=== PATIENT | female | born 2000 | race Caucasian/White ===

== ENCOUNTER 2018-04-15 00:38 | Emergency (ER) | payer MEDICAID ==
[2018-04-15 00:59] VITALS: RESP 18
--- NOTE | 2018-04-15 01:30 | ED PDOC ---
Lower Extremity Pain/Injury Time Seen by Provider: 04/15/18 01:00 Chief Complaint (Nursing): Lower Extremity Problem/Injury Chief Complaint (Provider): right foot pain History Per: Patient History/Exam Limitations: no limitations Onset/Duration Of Symptoms: Days (3 weeks) Additional Complaint(s): 18 y/o female presents for evaluation of right foot pain x 3 weeks. Patient states she fell 3 weeks ago and twisted right foot. Patient states she went to [facility] and had a foot xray was normal, and followed up with a diesel automotive technician and had another xray which was normal and was set up to have an MRI to rule out a ligament injury. Patient states MRI still pending but pain is not getting better. Denies numbness/weakness right lower extremity, limitation of movement. Past Medical History Reviewed: Historical Data, Nursing Documentation, Vital Signs Vital Signs: Last Vital Signs Temp 97.8 F 04/15/18 00:50 Pulse 87 04/15/18 00:50 Resp 18 04/15/18 00:50 BP 116/75 04/15/18 00:50 Pulse Ox 99 04/15/18 00:50 - Medical History PMH: No Chronic Diseases Denies: Asthma - Surgical History Surgical History: No Surg Hx - Family History Family History: States: Unknown Family Hx - Immunization History Hx Tetanus Toxoid Vaccination: Yes Hx Influenza Vaccination: No Hx Pneumococcal Vaccination: Yes - Home Medications Home Medications: Ambulatory Orders Medication Instructions Recorded Norgestrel-Ethinyl Estradiol DAILY 03/29/16 [Cryselle-28 Tablet] Metoclopramide HCl [Reglan] 10 mg PO QID PRN #20 tablet 03/30/16 Naproxen [Naprosyn] 500 mg PO Q12 PRN #14 tablet 04/15/18 - Allergies Allergies/Adverse Reactions: Allergies Allergy/AdvReac Type Severity Reaction Status Date / Time No Known Allergies Allergy Verified 07/01/16 20:18 Review of Systems ROS Statement: Except As Marked, All Systems Reviewed And Found Negative Musculoskeletal: Positive for: Foot Pain (right) Physical Exam - Reviewed Nursing Documentation Reviewed: Yes Vital Signs Reviewed: Yes - Physical Exam Appears: Positive for: Well, Non-toxic, No Acute Distress Pulses-Dorsalis Pedis (L): 2+ Pulses-Dorsalis Pedis (R): 2+ Pulses-Post. Tibialis (L): 2+ Pulses-Post. Tibialis (R): 2+ Extremity: Positive for: Normal ROM, Tenderness (distal dorsal right foot 1-5 metatarsals tender to palpate; no edema, deformity noted. FROM. Distal NV intact), Capillary Refill (<3 sec b/l LE). Negative for: Pedal Edema, Calf Tenderness Neurologic/Psych: Positive for: Alert, Oriented (x3) - ECG O2 Sat by Pulse Oximetry: 99 - Progress ED Course And Treament: -upreg -ibuprofen PO CALLIE wrap, surgical shoe applied to right foot Patient educated on findings, advised RICE Rx Naproxen provided Advised follow up with [facility]/MRI Return precautions given Disposition - Clinical Impression Clinical Impression: Right foot sprain - Patient ED Disposition Is Patient to be Admitted: No Counseled Patient/Family Regarding: Diagnosis, Need For Followup, Rx Given - Disposition Disposition: Routine/Home Disposition Time: 01:36 Condition: IMPROVED Prescriptions: Naproxen [Naprosyn] 500 mg PO Q12 PRN #14 tablet PRN Reason: Pain, Moderate (4-7) Instructions: Foot Sprain (DC)
[2018-04-15 02:10] VITALS: BP 118/75; PULSE 77; TEMP 98; O2SAT 100
== END 2018-04-15 01:59 | disposition home or self-care (01) ==
LOC: H.ER 00:38
DX: S93.601A Unspecified sprain of right foot, initial encounter (principal); X50.9XXA Other and unspecified overexertion or strenuous movements or postures, initial encounter; Y92.89 Other specified places as the place of occurrence of the external cause

== ENCOUNTER 2018-05-19 11:05 | Emergency (ER) | payer MEDICAID ==
[2018-05-19 11:41] VITALS: BP 96/57; PULSE 85; RESP 16; TEMP 98.6; O2SAT 100
--- NOTE | 2018-05-19 12:22 | ED PDOC ---
HPI: Dental Pain/Injury Time Seen by Provider: 05/19/18 12:05 Chief Complaint (Nursing): Dental Pain Chief Complaint (Provider): Jaw Pain History Per: Patient History/Exam Limitations: no limitations Onset/Duration Of Symptoms: Days (x1) Current Symptoms Are (Timing): Better Additional Complaint(s): Patient is a 18 y/o female with no significant PMHx who presents to the ED for evaluation of right jaw pain onset yesterday evening. Patient states she woke up this morning with a swollen right jaw. Patient reports since coming to the ED the swelling has resolved. Patient presented picture of swelling to right parotid. Patient claims she was wrestling yesterday and fell on the right side of her face but does not remember striking that area. Patient indicated that she has not taken any medication for relief of symptoms. Of note, [place] and her vaccines are U[place]. Patient denies fever, sore throat, malaise, rash, loss of consciousness, nausea, vomiting, sick contacts, and recent travel. PCP: None Provided Past Medical History Reviewed: Historical Data, Nursing Documentation, Vital Signs Vital Signs: Last Vital Signs Temp 98.6 F 05/19/18 11:40 Pulse 85 05/19/18 11:40 Resp 16 05/19/18 11:40 BP 96/57 L 05/19/18 11:40 Pulse Ox 100 05/19/18 11:40 - Medical History PMH: No Chronic Diseases Denies: Asthma - Surgical History Surgical History: Cholecystectomy - Family History Family History: States: Unknown Family Hx - Immunization History Hx Tetanus Toxoid Vaccination: Yes Hx Influenza Vaccination: Yes Hx Pneumococcal Vaccination: Yes - Home Medications Home Medications: Ambulatory Orders Medication Instructions Recorded Norgestrel-Ethinyl Estradiol DAILY 03/29/16 [Cryselle-28 Tablet] Metoclopramide HCl [Reglan] 10 mg PO QID PRN #20 tablet 03/30/16 Naproxen [Naprosyn] 500 mg PO Q12 PRN #14 tablet 04/15/18 Ibuprofen [Motrin Tab] 600 mg PO Q6 PRN #12 tab 05/19/18 - Allergies Allergies/Adverse Reactions: Allergies Allergy/AdvReac Type Severity Reaction Status Date / Time No Known Allergies Allergy Verified 07/01/16 20:18 Review of Systems ROS Statement: Except As Marked, All Systems Reviewed And Found Negative Constitutional: Negative for: Fever, Malaise ENT: Negative for: Throat Pain (soreness) Gastrointestinal: Negative for: Nausea, Vomiting Musculoskeletal: Positive for: Other (right jaw pain) Skin: Negative for: Rash Neurological: Negative for: Headache, Other (loss of consciousness) Physical Exam - Reviewed Nursing Documentation Reviewed: Yes Vital Signs Reviewed: Yes - Physical Exam Appears: Positive for: No Acute Distress Head Exam: Positive for: ATRAUMATIC, NORMAL INSPECTION, NORMOCEPHALIC Skin: Positive for: Normal Color, Warm, DRY Eye Exam: Positive for: Normal appearance, EOMI, PERRL ENT: Positive for: Normal ENT Inspection (full ROM actively of jaw). Negative for: Other (malocclusion and facial or gingival swelling ) Neck: Positive for: Normal, Painless ROM, Supple Cardiovascular/Chest: Positive for: Regular Rate, Rhythm. Negative for: Murmur Respiratory: Positive for: Normal Breath Sounds. Negative for: Respiratory Distress Neurological/Psych: Positive for: Alert, Oriented (x3) - ECG O2 Sat by Pulse Oximetry: 100 (RA) Pulse Ox Interpretation: Normal Medical Decision Making Medical Decision Making: Time: 1220 Impression: Facial Swelling Resolved Plan: Mumps Virus AB (IGG) Mumps Virus AB (IGM) Motrin 600 mg PO Scribe Attestation: Documented by Robert Howe, acting as a scribe Andre Dietrich PA-C. Provider Scribe Attestation: All medical record entries made by the Scribe were at my direction and personally dictated by me. I have reviewed the chart and agree that the record accurately reflects my personal performance of the history, physical exam, medical decision making, and the department course for this patient. I have also personally directed, reviewed, and agree with the discharge instructions and disposition. Disposition - Clinical Impression Clinical Impression: Facial swelling - Patient ED Disposition Is Patient to be Admitted: No - Disposition Referrals: [facility] [place] [Outside] Disposition: Routine/Home Disposition Time: 12:20 Condition: STABLE Additional Instructions: FOLLOW UP WITH PMD FOR FURTHER EVALUATION RETURN TO ED IMMEDIATELY IF SYMPTOMS WORSEN KEEP YOURSELF AWAY FROM FEMALES, BABIES, AND CHILDREN [facility], thank you for letting us take care of you today. Your provider was Suman Medina MD and you were treated for RT FACE SWELLING. The emergency medical care you received today was directed at your acute symptoms. If you were prescribed any medication, please fill it and take as directed. It may take several days for your symptoms to resolve. Return to the Emergency Department if your symptoms worsen, do not improve, or if you have any other problems. Please contact your doctor or call one of the physicians/clinics you have been referred to that are listed on the Patient Visit Information form that is included in your discharge packet. Bring any paperwork you were given at discharge with you along with any medications you are taking to your follow up visit. Our treatment cannot replace ongoing medical care by a primary care provider outside of the emergency department. Thank you for allowing the [facility] team to be part of your care today. If you had an X-Ray or CT scan: A Radiologist will review the ED reading if any change in treatment is needed we will contact you. If you had a blood, urine, or wound culture: It will take several days for the results, if any change in treatment is needed we will contact you. If you had an STI test: It will take 48 hours for the results. Please call after 1 week if you have not heard back. Prescriptions: Ibuprofen [Motrin Tab] 600 mg PO Q6 PRN #12 tab PRN Reason: Pain Instructions: Swelling Forms: [employer] (Green[place]ic)
== END 2018-05-19 12:48 | disposition home or self-care (01) ==
LOC: SUPCPDRO 11:05 → H.ER 11:05
DX: R22.0 Localized swelling, mass and lump, head (principal)